=== PATIENT | female | born 1960 | race Caucasian/White ===

== ENCOUNTER → 2017-02-19 | Outpatient (CLI) | payer BC ==
[~2017-02-19] MED LIST: CPR500 PO; PHEN-876 PO
--- NOTE | 2017-02-19 15:07 | MAMMOGRAPHY REPORT ---
BILATERAL DIGITAL SCREENING MAMMOGRAM TOMOSYNTHESIS WITH CAD: 02/19/2017 CLINICAL HISTORY: Routine screening. Patient has no complaints. TECHNIQUE: Breast tomosynthesis in addition to standard 2D mammography was performed. Current study was also evaluated with a Computer Aided Detection (CAD) system. COMPARISON: Comparison is made to exams dated: 01/24/2016 mammogram, 11/27/2013 mammogram, 10/19/2012 m ammogram, 10/06/2011 mammogram - [facility], 11/29/2008, and 11/28/2007. BREAST COMPOSITION: The tissue of both breasts is heterogeneously dense, which may obscure small ma sses. FINDINGS: No suspicious masses, calcifications, or areas of architectural distortion are noted in e ither breast. There has been no significant interval change compared to prior exams. IMPRESSION: ACR BI-RADS CATEGORY 1: NEGATIVE There is no mammographic evidence of malignancy. A 1 year screening mammogram is recommended. The p atient will receive written notification of the results. Approximately 10% of breast cancers are not detected with mammography. A negative mammographic repor t should not delay biopsy if a clinically suggestive mass is present. Kaela Barrientos M.D. ah/:02/19/2017 14:18:38 Shipping Coordinator: Bea CALDERA(Bonnie)(Neha)(BD), [facility] letter sent: Normal 1/2 BI-RADS Code: ACR BI-RADS Category 1: Negative
== END | disposition home or self-care (01) ==
LOC: C.MAMM 13:51
PROVIDERS: ATTEND Obstetrics & Gynecology
DX: Z12.31 Encounter for screening mammogram for malignant neoplasm of breast (principal)

== ENCOUNTER → 2017-04-14 | Outpatient (CLI) | payer BC | END | disposition home or self-care (01) | LOC: C.PAPS 10:20 | PROVIDERS: ATTEND Obstetrics & Gynecology | DX: Z01.419 Encounter for gynecological examination (general) (routine) without abnormal findings (principal) ==

== ENCOUNTER → 2018-02-25 | Outpatient (CLI) | payer OTHER ==
--- NOTE | 2018-02-25 15:14 | MAMMOGRAPHY REPORT ---
BILATERAL DIGITAL SCREENING MAMMOGRAM TOMOSYNTHESIS WITH CAD: 02/25/2018 TECHNIQUE: Breast tomosynthesis in addition to standard 2D mammography was performed. Current study was also evaluated with a Computer Aided Detection (CAD) system. COMPARISON: Comparison is made to exams dated: 02/19/2017 mammogram, 01/24/2016 mammogram, 11/27/2013 m ammogram, 10/19/2012 mammogram, 10/06/2011 mammogram - [facility], and 11/29/2008. BREAST COMPOSITION: The tissue of both breasts is heterogeneously dense, which may obscure small mas ses. FINDINGS: No suspicious masses, calcifications, or areas of architectural distortion are noted in ei ther breast. There has been no significant interval change compared to prior exams. IMPRESSION: ACR BI-RADS CATEGORY 1: NEGATIVE There is no mammographic evidence of malignancy. A 1 year screening mammogram is recommended. The pa tient will receive written notification of the results. Approximately 10% of breast cancers are not detected with mammography. A negative mammographic report should not delay biopsy if a clinically suggestive mass is present. Kaela Barrientos M.D. /:02/25/2018 13:42:29 Gore Cutter: Dayanara FONSECA)(Neha), [facility] letter sent: Normal 1/2 BI-RADS Code: ACR BI-RADS Category 1: Negative
== END | disposition home or self-care (01) ==
LOC: C.MAMM 10:20
PROVIDERS: ATTEND Nurse Practitioner Family
DX: Z12.31 Encounter for screening mammogram for malignant neoplasm of breast (principal)

== ENCOUNTER 2024-02-03 17:08 | Inpatient (IN) ==
--- NOTE | 2024-02-03 17:36 | ED Triage Note ---
Date of Service February 03, 2024 Provider in Triage Author: Johana Nayak History of Present Illness This patient was briefly evaluated while in triage. An abbreviated physical exam was performed. This patient is a 63-year-old Female who presents to the ED for evaluation of right leg pain. No injury or trauma. History of blood clots in the right leg. She was recently taken off her Xarelto for brain surgery for removal of acoustic neuroma. Has been off of the Xarelto since 01/25/24 and was to restarted on 02/08/23. She denies chest pain or SOB. Denies any other symptoms. No pain in the left leg. Physical Exam GENERAL: Non-toxic and in no acute distress. HEENT: Pupils equal. No obvious scleral icterus. HEART: Regular rate and rhythm. LUNGS: Clear to auscultation. No accessory muscle use. NEURO: Alert and oriented. No obvious neurological deficits on quick neuro exam. MUSCULOSKELETAL: Mild edema and tenderness to the superior lateral aspect of the right lower leg. No significant erythema or warmth. No tenderness of the left lower extremity. Initial orders for labs and / or imaging were placed and patient was placed in the waiting area until a bed is available. Please see further documentation for the full ED course. MDM / Impression Impression Impression: DVT (deep venous thrombosis), Leukocytosis Impression: DVT (deep venous thrombosis) Qualifiers: DVT location: lower extremity Affected thrombotic vein of extremity: unspecified vein of extremity Chronicity: acute Laterality: right Qualified Code(s): I82.401 - Acute embolism and thrombosis of unspecified deep veins of right lower extremity Leukocytosis Qualifiers: Leukocytosis type: unspecified Qualified Code(s): D72.829 - Elevated white blood cell count, unspecified
[2024-02-03 18:37] LABS: Basophils # (auto) 0.02 K/uL (0.00-0.20); Basophils % (auto) 0.1 %; Eosinophils # (auto) 0.02 K/uL (0.00-0.50); Eosinophils % (auto) 0.1 %; Hematocrit (blood only) 35.5 % (37.0-47.0); Hemoglobin 12.3 g/dl (12.0-16.0); Immature Granulocytes # (auto) 0.41 K/uL (0.01-0.20); Immature Granulocytes % (auto) 2.5 %; Lymphocytes # (auto) 3.78 K/uL (1.20-3.40); Lymphocytes % (auto) 23.3 %; Mean Corpuscular Hemoglobin 30.7 pg (25.0-34.0); Mean Corpuscular Hgb Conc 34.6 g/dL (32.0-36.0); Mean Corpuscular Volume 88.5 fL (80.0-100.0); Mean Platelet Volume 8.6 fL (9.4-12.4); Monocytes # (auto) 0.96 K/uL (0.11-0.59); Monocytes % (auto) 5.9 %; Neutrophils # (auto) 11.05 K/uL (1.40-6.50); Neutrophils % (auto) 68.1 %; Platelet Count 356 K/uL (130-400); RDW Coefficient of Variation 12.9 % (11.5-14.5); RDW Standard Deviation 42.3 fL (36.4-46.3); Red Blood Count 4.01 M/uL (4.20-5.40); White Blood Count 16.24 K/ul (4.8-10.8)
[2024-02-03 18:54] LABS: Partial Thromboplastin Ratio 0.7; Partial Thromboplastin Time 21 Seconds (21-31); Prothrombin Time 10.8 Seconds (9.0-12.0)
[2024-02-03 19:20] LABS: Albumin Globulin Ratio 1.5 (0.9-2); BUN Creatinine Ratio 44.4 (10-20); Bilirubin,Total 0.4 mg/dl (0.2-1.0); Calcium 8.7 mg/dl (8.6-10.3); Creatinine Clr Calc Pharmacy 90.5 ml/min; Est GFR (Non-African American) 101.8 ml/min; Globulin 2.7 gm/dl (2.5-4.0); Potassium 3.9 mmol/L (3.5-5.1); Total Protein 6.7 gm/dl (6.0-8.3)
--- NOTE | 2024-02-03 21:24 | Ultrasound Report ---
Exam(s): US VENOUS RIGHT LOWER EXTREMITY EXAM: US Duplex Right Lower Extremity Veins CLINICAL HISTORY: Reason for exam: Leg pain, swelling - eval DVT. TECHNIQUE: Real-time duplex ultrasound scan of the right lower extremity veins integrating B-mode two-dimensional vascular structure, Doppler spectral analysis, color flow Doppler imaging and compression. COMPARISON: 06-19-2022. FINDINGS: Patent right common femoral vein. Nonocclusive acute appearing thrombus in the distal superficial femoral vein and occlusive thrombus in the popliteal vein and posterior tibial vein. No evidence for popliteal cyst. IMPRESSION: Acute deep venous thrombosis present. Nonocclusive acute appearing thrombus in the distal superficial femoral vein. Occlusive thrombus in the popliteal vein and posterior tibial vein. Communications: Call Doctor DVT acute, progressing Electronically signed by: Dain Jordan M.D. 02/03/24 21:23 PM
--- NOTE | 2024-02-03 21:59 | Emergency Department Note ---
Impression & Plan DVT (deep venous thrombosis), Leukocytosis ED Provider Note NAME: JOSE ESCALANTE AGE: 63 SEX: F : 1960 ARRIVES VIA: Walk-In INFORMANT: Patient ED PROVIDER(S): Rahul Iglesias DO CHIEF COMPLAINT: right leg pain HPI: Patient is a 63-year-old female who presents to the ER for right lower extremity pain. She has a past medical history of brain surgery performed at [facility] by Dr. Manuel Kramer done last Wednesday per daughter. She is normally on Xarelto but has stopped that for the surgery and is not supposed to restart that till the first of February. She denies any headache or change in vision. No chest pain or shortness of breath. Pain has been constant in the back of her knee and calf and feels in her previous DVT. No dysuria, urgency, or frequency. No other exacerbating or remitting factors. ADDITIONAL HISTORY OBTAINED: Additional history provided by She has a past medical history of brain surgery performed at [facility] by Dr. Manuel Kramer done last Wednesday. Chronic Medical/Social Conditions Affecting Care: Per HPI PAST MEDICAL HISTORY:See Below PAST SURGICAL HISTORY:See Below FAMILY HISTORY:See Below SOCIAL HISTORY:See Below HOME MEDICATIONS:See Below ALLERGIES:See Below VITALS:See Below PHYSICAL EXAMINATION: GENERAL: Sitting up in bed, alert, well appearing, well nourished, no distress, non-toxic HEAD: Incision is clean dry and intact on the left head EYE EXAM: normal conjunctiva. PERRL and EOM's grossly intact. OROPHARYNX: no exudate, no erythema, lips, buccal mucosa, and tongue normal and mucous membranes are moist NECK: supple, no nuchal rigidity, no adenopathy, non-tender LUNGS: Clear to auscultation. Normal chest wall mechanics HEART: no murmurs, S1 normal and S2 normal ABDOMEN: abdomen soft, non-tender, normo-active bowel sounds, no masses, no rebound or guarding. UPPER EXTREMITIES: upper extremities are grossly normal. LOWER EXTREMITIES: Calves are equal bilateral. DP and PT is 2 out of 4. Gross station intact. Flexion-extension bilateral hip knee and ankles intact NEURO EXAM: Normal sensorium, cranial nerves II-XII grossly intact, normal speech, no gross weakness of arms, no gross weakness of legs. MEDICAL DECISION MAKING: Patient is a 63-year-old female postop from last Wednesday brain surgery from [facility] that presents to the ER for pain in the right leg. IV was established blood work was obtained. Labs show leukocytosis of 16,000. No significant anemia. INR unremarkable. BMP with LFTs bilirubin was unremarkable. Troponin was negative. Venous Doppler shows DVT in the right lower extremity. I spoke with the radiologist in regards to this. Following this contacted [facility] neurosurgery Dr. Goff. They recommend heparin drip without bolus starting at a low rate and titrating up to therapeutic levels. Once therapeutic CT of the head should be obtained. As there is no acute findings she can be transitioned. If there is anything abnormal or change in mental status or headache CT needs to be obtained immediately. I discussed this with the hospitalist as well as the patient and . They expressed understanding and patient was admitted to the hospital for further workup. Consults/Care Managements Discussions: Per [facility] Triage Nursing notes reviewed. Limited review of prior medical records performed Vital Signs: reviewed and remarkable for no significant abnormalities Differential diagnosis: DVT, musculoskeletal, infection, joint effusion, trauma, lymphedema, idiopathic, CHF, as well as other pathologies. ER treatment provided: See below Diagnostics interpreted by me include EKG and cardiac monitoring as listed below: -Cardiac Monitoring: An order was placed for continuous cardiac monitoring. The monitor shows a rate of 70 with sinus rhythm. -ECG: Sinus rhythm rate of 67 Normal axis No PVCs QTc 435 -Laboratory studies:Interpreted by me as stated above in MDM and shown below. Imaging studies: Xrays: As interpreted by me:none CTs show: none Procedures:none Critical Care: None Past Med/Surg History Medical History DVT (deep venous thrombosis) Surgical History No pertinent past surgical history Family History Father Myocardial infarction Denies family history of Ovarian cancer Prostate cancer Breast cancer Colorectal cancer Social History Smoking Status: Never smoker Preferred Language: Occitan Feels Safe at Home: Yes Allergies Allergies Allergy/AdvReac Type Severity Reaction Status Date / Time No Known Allergies Allergy Unknown Verified 03/30/23 08:36 Home Meds Home Medications Medication Instructions Recorded Confirmed buspirone 5 mg tablet 5 mg PO BID 01/23/24 01/23/24 hydroxyzine pamoate 25 mg capsule 25 mg PO QID PRN Anxiety 01/23/24 01/23/24 rivaroxaban 10 mg tablet (Xarelto) 10 mg PO DAILY 01/23/24 01/23/24 simvastatin 20 mg tablet 20 mg PO HS 01/23/24 01/23/24 Results & Data (ED) Vital Signs Vital Signs - 24 hr 02/03/24 17:33 02/03/24 21:27 Temperature 36.8 C Temperature Source Temporal Artery Scan Pulse Rate 95 H 67 Respiratory Rate 18 Respiratory Effort / Characteristics Non-Labored Spontaneous Respiratory Depth Normal Respiratory Pattern Regular Blood Pressure 126/88 Blood Pressure Mean 100 Blood Pressure Position Sitting Pulse Oximetry 97 Oxygen Delivery Method Room Air Sepsis Recent Fever Within 48 Hours No Sepsis New/Unexplained Change in Mental Status N/A Sepsis Action Taken by Nursing No Action Required Laboratory Data 02/03/24 18:20 02/03/24 18:20 Lab Results 02/03/24 Range/Units 18:20 WBC 16.24 H (4.8-10.8) K/ul RBC 4.01 L (4.20-5.40) M/uL Hgb 12.3 (12.0-16.0) g/dl Hct 35.5 L (37.0-47.0) % MCV 88.5 (80.0-100.0) fL MCH 30.7 (25.0-34.0) pg MCHC 34.6 (32.0-36.0) g/dL RDW Std Deviation 42.3 (36.4-46.3) fL RDW Coeff of Zia 12.9 (11.5-14.5) % Plt Count 356 (130-400) K/uL MPV 8.6 L (9.4-12.4) fL Immature Gran % (Auto) 2.5 % Neut % (Auto) 68.1 % Lymph % (Auto) 23.3 % Mineral % (Auto) 5.9 % Eos % (Auto) 0.1 % Baso % (Auto) 0.1 % Neut # (Auto) 11.05 H (1.40-6.50) K/uL Lymph # (Auto) 3.78 H (1.20-3.40) K/uL Mineral # (Auto) 0.96 H (0.11-0.59) K/uL Eos # (Auto) 0.02 (0.00-0.50) K/uL Baso # (Auto) 0.02 (0.00-0.20) K/uL Immature Gran # (Auto) 0.41 H (0.01-0.20) K/uL PT 10.8 (9.0-12.0) Seconds INR 1.0 (0.9-1.1) APTT 21 (21-31) Seconds PTT Ratio 0.7 Sodium 135 L (136-145) mmol/L Potassium 3.9 (3.5-5.1) mmol/L Chloride 102 (98-107) mmol/L Carbon Dioxide 25 (21-32) mmol/L Anion Gap 8 (3-11) BUN 24 H (6-23) mg/dl Creatinine 0.54 L (0.6-1.2) mg/dl Est Cr Clr Drug Dosing 90.5 ml/min Est GFR ( Amer) 118.0 ml/min Est GFR (Non-Af Amer) 101.8 ml/min BUN/Creatinine Ratio 44.4 H (10-20) Glucose 135 H (70-99(Fasting)) mg/dl Calcium 8.7 (8.6-10.3) mg/dl Total Bilirubin 0.4 (0.2-1.0) mg/dl AST 14 (13-39) U/L ALT 18 (7-52) U/L Alkaline Phosphatase 57 (34-104) U/L Troponin I High Sens 3.0 (0-14) pg/ml Total Protein 6.7 (6.0-8.3) gm/dl Albumin 4.0 (3.4-5.0) gm/dl Globulin 2.7 (2.5-4.0) gm/dl Albumin/Globulin Ratio 1.5 (0.9-2) Administered Medications Cephalexin HCl (Cephalexin 500 Mg Cap) 500 mg PO Q8 [facility]; Protocol Stop: 02/05/24 23:59 Last Admin: 02/04/24 01:15 Dose: 500 mg Documented By: AAW Dexamethasone (Dexamethasone 1 Mg Tab) 2 mg PO BID [facility] Stop: 03/05/24 00:15 Last Admin: 02/04/24 01:14 Dose: 2 mg Documented By: MEY Heparin Sodium/Dextrose (Heparin Sodium/Dextrose) 25,000 units in 500 mls @ 13 mls/hr IV .Q24H [facility]; Protocol Stop: 03/04/24 23:14 Last Admin: 02/03/24 23:36 Dose: 650 units/hr, 13 mls/hr Documented By: PAULY Co-signed By: Sennosides (Senna 8.6 Mg Tab) 8.6 mg PO BID [facility] Stop: 03/05/24 00:15 Last Admin: 02/04/24 01:15 Dose: 8.6 mg Documented By: MEY Imaging Data Radiologist's Impression: Venous Doppler Study 02/03/24 17:36 CR Exam(s): US VENOUS RIGHT LOWER EXTREMITY EXAM: US Duplex Right Lower Extremity Veins CLINICAL HISTORY: Reason for exam: Leg pain, swelling - eval DVT. TECHNIQUE: Real-time duplex ultrasound scan of the right lower extremity veins integrating B-mode two-dimensional vascular structure, Doppler spectral analysis, color flow Doppler imaging and compression. COMPARISON: 06-19-2022. FINDINGS: Patent right common femoral vein. Nonocclusive acute appearing thrombus in the distal superficial femoral vein and occlusive thrombus in the popliteal vein and posterior tibial vein. No evidence for popliteal cyst. IMPRESSION: Acute deep venous thrombosis present. Nonocclusive acute appearing thrombus in the distal superficial femoral vein. Occlusive thrombus in the popliteal vein and posterior tibial vein. Communications: Call Doctor DVT acute, progressing Electronically signed by: Dain Jordan M.D. 02/03/24 21:23 PM Discharge Plan Visit Data Chief Complaint: Leg Injury/Pain Stated Complaint: TAKEN OFF BLOOD THINNERS FOR SURGERY ED Provider: Rahul Iglesias Discharge Problem: DVT (deep venous thrombosis), Leukocytosis Discharge Instructions Interventions: ED Discharge Assessment Last Done: 02/04/24 00:16 Discharge Problem: DVT (deep venous thrombosis) Qualifiers: DVT location: lower extremity Affected thrombotic vein of extremity: u nspecified vein of extremity Chronicity: acute Laterality: right Qualified Code(s): I82.401 - Acute embolism and thrombosis of unspecified deep veins of right lower extremity Leukocytosis Qualifiers: Leukocytosis type: unspecified Qualified Code(s): D72.829 - Elevated white blood cell count, unspecified
[2024-02-03] MEDS: HEPARIN SODIUM/DEXTROSE 25,000 UNITS/500 ML BAG IV SCH (23:36)
[2024-02-04] MEDS: dexAMETHasone 1 MG TAB PO SCH (01:14)
[2024-02-04] MEDS: SENNA 8.6 MG TAB PO SCH (01:15)
[2024-02-04] MEDS: cephALEXin 500 MG CAP PO SCH ×2 (01:15→10:19)
--- NOTE | 2024-02-04 04:41 | History & Physical Report ---
Date of Service February 03, 2024 Assessment & Plan (1) DVT (deep venous thrombosis): Plan: - recurrent DVT noted on imaging - ED discussed case with [facility] Neurology; plan for Heparin gtt- repeat Head CT once heparin is at therapeutic level plan for repeat head CT; if no acute changes can transition back to DOAC - q4 neurochecks, low threshold for Head CT if any anything abnormal or changes in mental status (2) Leukocytosis: Plan: - leukocytosis to 16; on dexamethasone taper post-op - no signs of infection (3) History of acoustic neuroma: Plan: - s/p removal 01/25 - on Keflex post-op- instructed to take 5 days post d/c (01/31); so last day would be 02/04 - continue Decadron taper- 02/01-02/09= 2mg BID; 02/10-02/11= 2mg daily (4) HLD (hyperlipidemia): Plan: - continue statin History of Present Illness Primary Care Provider: KANCHAN Taylor 63 year old female presenting with concern for acute onset of right lower extremity pain. She has a history of DVT x 2. She is on Xarelto indefinitely. Had surgery to remove an acoustic neuroma on 01/25. Has been recovering well from surgery, no complications. Has been off Xarelto since 01/24. Surgery was completed at [facility]. Denies redness/swelling in legs but states that it feels the same as when she had her prior DVTs. Denies chest pain/dyspnea. ED Course Significant for: US LE with Nonocclusive acute appearing thrombus in the distal superficial femoral vein. Occlusive thrombus in the popliteal vein and posterior tibial vein, ED physician spoke with [facility] Neurology and plan per them was to start Heparin gtt, which was initiated in the ED. Allergies Allergy/AdvReac Type Severity Reaction Status Date / Time No Known Allergies Allergy Unknown Verified 03/30/23 08:36 Home Medications Medication Instructions Recorded Confirmed Type buspirone 5 mg tablet 5 mg PO BID 01/23/24 01/23/24 History hydroxyzine pamoate 25 mg capsule 25 mg PO QID PRN Anxiety 01/23/24 01/23/24 History rivaroxaban 10 mg tablet (Xarelto) 10 mg PO DAILY 01/23/24 01/23/24 History simvastatin 20 mg tablet 20 mg PO HS 01/23/24 01/23/24 History Past Med/Surg History Medical History (Updated 02/04/24 @ 11:09 by Gloria Hearn DO) HLD (hyperlipidemia) History of acoustic neuroma s/p surgical excision at [facility] DVT (deep venous thrombosis) Surgical History (Updated 02/04/24 @ 11:09 by Gloria Hearn DO) History of brain surgery removal of acoustic neuroma - 01/2024 at [facility] Family History Father Myocardial infarction Denies family history of Ovarian cancer Prostate cancer Breast cancer Colorectal cancer Social History Smoking Status: Never smoker Hx Alcohol Use: No Hx Substance Use: No Preferred Language: Wallisian Communication Ability: Effective Lifter/Driver Required: No Beliefs That Will Affect Care: None Current Living Situation: Spouse Other Information That Helps Us Care for You: No Feels Safe at Home: Yes Safety Concerns: Feels Safe At This Time Assistive Devices: Glasses Assistive Devices Comment: reading glasses Review of Systems Review of Systems: As per above Physical Exam Physical Exam: Constitutional: well-appearing, no acute distress HEENT: NCAT, no conjunctival injection CV: regular rhythm, no murmur appreciated, extremities well-perfused, no LE edema Resp: CTABL, no wheezes/rales/rhonchi appreciated, no increased work of breathing MSK: no gross deformities appreciated, tenderness, mild edema right calf, no erythema Skin: warm, dry, no rash appreciated Neuro: alert, oriented, no focal neurologic deficit appreciated Results & Data Results & Data Vital Signs (Past 12 Hours) Vital Signs Temp Pulse Resp BP Pulse Ox O2 Del Method 02/03/24 21:27 67 02/03/24 17:33 36.8 C 95 H 18 126/88 97 Room Air Laboratory Results Laboratory Results WBC 16.33 K/ul (4.8-10.8) H 02/04/24 05:28 RBC 3.62 M/uL (4.20-5.40) L 02/04/24 05:28 Hgb 11.1 g/dl (12.0-16.0) L 02/04/24 05:28 Hct 32.7 % (37.0-47.0) L 02/04/24 05:28 MCV 90.3 fL (80.0-100.0) 02/04/24 05:28 MCH 30.7 pg (25.0-34.0) 02/04/24 05: MCHC 33.9 g/dL (32.0-36.0) 02/04/24 05: RDW Std Deviation 42.8 fL (36.4-46.3) 02/04/24 05: RDW Coeff of Zia 13.0 % (11.5-14.5) 02/04/24 05: Plt Count 300 K/uL (130-400) 02/04/24 05: MPV 8.6 fL (9.4-12.4) L 02/04/24 05: Immature Gran % (Auto) 2.5 % 02/03/24 18:20 Neut % (Auto) 68.1 % 02/03/24 18:20 Lymph % (Auto) 23.3 % 02/03/24 18:20 [place] % (Auto) 5.9 % 02/03/24 18:20 Eos % (Auto) 0.1 % 02/03/24 18:20 Baso % (Auto) 0.1 % 02/03/24 18:20 Neut # (Auto) 11.05 K/uL (1.40-6.50) H 02/03/24 18:20 Lymph # (Auto) 3.78 K/uL (1.20-3.40) H 02/03/24 18:20 [place] # (Auto) 0.96 K/uL (0.11-0.59) H 02/03/24 18:20 Eos # (Auto) 0.02 K/uL (0.00-0.50) 02/03/24 18:20 Baso # (Auto) 0.02 K/uL (0.00-0.20) 02/03/24 18:20 Immature Gran # (Auto) 0.41 K/uL (0.01-0.20) H 02/03/24 18:20 PT 10.8 Seconds (9.0-12.0) 02/03/24 18:20 INR 1.0 (0.9-1.1) 02/03/24 18:20 APTT 21 Seconds (21-31) 02/03/24 18:20 PTT Ratio 0.7 02/03/24 18:20 Heparin Anti-Xa, Unfract 0.24 IU/ml (0.3-0.7) L 02/04/24 05:28 Sodium 136 mmol/L (136-145) 02/04/24 05:28 Potassium 3.7 mmol/L (3.5-5.1) 02/04/24 05:28 Chloride 104 mmol/L (98-107) 02/04/24 05:28 Carbon Dioxide 25 mmol/L (21-32) 02/04/24 05:28 Anion Gap 7 (3-11) 02/04/24 05:28 BUN 20 mg/dl (6-23) 02/04/24 05:28 Creatinine 0.51 mg/dl (0.6-1.2) L 02/04/24 05:28 Est Cr Clr Drug Dosing 95.8 ml/min 02/04/24 05:28 Est GFR ( Amer) 120.3 ml/min 02/04/24 05:28 Est GFR (Non-Af Amer) 103.8 ml/min 02/04/24 05:28 BUN/Creatinine Ratio 39.2 (10-20) H 02/04/24 05:28 Glucose 98 mg/dl (70-99(Fasting)) 02/04/24 05:28 Calcium 8.1 mg/dl (8.6-10.3) L 02/04/24 05:28 Magnesium 1.9 mg/dl (1.7-2.4) 02/04/24 05:28 Total Bilirubin 0.6 mg/dl (0.2-1.0) 02/04/24 05:28 AST 13 U/L (13-39) 02/04/24 05:28 ALT 15 U/L (7-52) 02/04/24 05:28 Alkaline Phosphatase 51 U/L (34-104) 02/04/24 05:28 Troponin I High Sens 3.0 pg/ml (0-14) 02/03/24 18:20 Total Protein 5.8 gm/dl (6.0-8.3) L 02/04/24 05:28 Albumin 3.5 gm/dl (3.4-5.0) 02/04/24 05:28 Globulin 2.3 gm/dl (2.5-4.0) L 02/04/24 05:28 Albumin/Globulin Ratio 1.5 (0.9-2) 02/04/24 05:28 Impressions Venous Doppler Study 02/03/24 17:36 CR Exam(s): US VENOUS RIGHT LOWER EXTREMITY EXAM: US Duplex Right Lower Extremity Veins CLINICAL HISTORY: Reason for exam: Leg pain, swelling - eval DVT. TECHNIQUE: Real-time duplex ultrasound scan of the right lower extremity veins integrating B-mode two-dimensional vascular structure, Doppler spectral analysis, color flow Doppler imaging and compression. COMPARISON: 06-19-2022. FINDINGS: Patent right common femoral vein. Nonocclusive acute appearing thrombus in the distal superficial femoral vein and occlusive thrombus in the popliteal vein and posterior tibial vein. No evidence for popliteal cyst. IMPRESSION: Acute deep venous thrombosis present. Nonocclusive acute appearing thrombus in the distal superficial femoral vein. Occlusive thrombus in the popliteal vein and posterior tibial vein. Communications: Call Doctor DVT acute, progressing Electronically signed by: Dain Jordan M.D. 02/03/24 21:23 PM Supervising Physician Co-Signing Physician Notes Patient seen and examined, chart reviewed, case discussed with Dr. Gutierrez and I agree with the assessment and plan as above Patient with recent surgical excision of acoustic neuroma performed at [facility] pn 01/26/24. Patient is on Keflex and Decadron post- operatively. History of DVT on Eliquis anticoagulation which was held for the surgery. Patient presenting with acute RLE DVT. Patient has had a mildly productive cough since the surgery otherwise denies chest pain, pleuritic pain, hemoptysis On exam she is resting comfortably, NAD Skin without rash HEENT - MMM, Neck supple, surgical sites with no evidence of infection Heart - +S1/S2, regular, no m/r/g Lungs - CTA, no rales/rhonchi or wheezes Abd - Soft, NT/ND Ext - warm, well perfused Labs and images reviewed Assessment/Plan Case discussed between ER team and Neurosurgical team at [facility]. -Will start heparin gtt low dose without bolus -When therapeutic on heparin gtt should obtain non-contrast CT of the head to assess for any bleeding -If stable, may resume home NOAC -Neuro checks, low threshold for repeat CT -Cough - patient on Keflex, leukocytosis most likely due to her Decadron as well. Monitor for development of pneumonia -Remainder as above Resident Activity Tracking Resident Involvement: Resident Care Provided Care Provided: Adult Hospital Medicine (1) DVT (deep venous thrombosis) Affected thrombotic vein of extremity: unspecified vein of extremity Chronicity: acute DVT location: lower extremity Laterality: right Qualified Code(s): I82.401 - Acute embolism and thrombosis of unspecified deep veins of right lower extremity (2) Leukocytosis Leukocytosis type: unspecified Qualified Code(s): D72.829 - Elevated white blood cell count, unspecified
[2024-02-04 06:24] LABS: Hematocrit (blood only) 32.7 % (37.0-47.0); Hemoglobin 11.1 g/dl (12.0-16.0); Mean Corpuscular Hemoglobin 30.7 pg (25.0-34.0); Mean Corpuscular Hgb Conc 33.9 g/dL (32.0-36.0); Mean Corpuscular Volume 90.3 fL (80.0-100.0); Mean Platelet Volume 8.6 fL (9.4-12.4); Platelet Count 300 K/uL (130-400); RDW Standard Deviation 42.8 fL (36.4-46.3); Red Blood Count 3.62 M/uL (4.20-5.40); White Blood Count 16.33 K/ul (4.8-10.8)
[2024-02-04 06:46] LABS: ANTI-Xa, UFH(UnfractionatedHep 0.24 IU/ml (0.3-0.7)
[2024-02-04 06:48] LABS: Albumin Globulin Ratio 1.5 (0.9-2); Albumin Level 3.5 gm/dl (3.4-5.0); BUN Creatinine Ratio 39.2 (10-20); Bilirubin,Total 0.6 mg/dl (0.2-1.0); Calcium 8.1 mg/dl (8.6-10.3); Creatinine Clr Calc Pharmacy 95.8 ml/min; Est GFR (African American) 120.3 ml/min; Est GFR (Non-African American) 103.8 ml/min; Globulin 2.3 gm/dl (2.5-4.0); Magnesium 1.9 mg/dl (1.7-2.4); Potassium 3.7 mmol/L (3.5-5.1); Total Protein 5.8 gm/dl (6.0-8.3)
[2024-02-04] MEDS: FAMOTIDINE 20 MG TAB PO SCH (10:19)
[2024-02-04] MEDS: Heparin IV Adult Wt-Based Low-Dose *NO* INITIAL Bolus Protocol IV STA (11:08)
--- NOTE | 2024-02-04 11:16 | Billing Data ---
Date of Service February 03, 2024 Coding Level of Care Code 42150 INT INP/OBS CARE
--- NOTE | 2024-02-04 12:44 | Electrocardiogram Report ---
Test Reason : Blood Pressure : / mmHG Vent. Rate : 067 BPM Atrial Rate : 067 BPM P-R Int : 156 ms QRS Dur : 086 ms QT Int : 412 ms P-R-T Axes : 074 018 053 degrees QTc Int : 435 ms Normal sinus rhythm Normal ECG When compared with ECG of 23-JAN-2024 18:40, No significant change was found Confirmed by Mata Marcial ([id number]) on 02/04/2024 12:44:36 PM Referred By: REFERRED SELF Confirmed By:Mata Marcial
[2024-02-04 13:36] LABS: ANTI-Xa, UFH(UnfractionatedHep 0.39 IU/ml (0.3-0.7)
--- NOTE | 2024-02-04 15:08 | CT Scan Report ---
CT head/brain wo con CLINICAL HISTORY: 63 years-old Female with Recent brain surgery, now on heparin drip. Acute headache TECHNIQUE: Multiple axial CT images of the head were obtained without contrast. A dose lowering tech nique was utilized adhering to the principles of ALARA. CT DOSE: 625.8 mGy.cm COMPARISON: None. FINDINGS: Transverse dimension of the lateral ventricles measures 3.5 cm, previously 3.9 cm. Involutional dover es with chronic microvascular ischemic disease. Right frontal calvaria are whole is new from prior. A dditionally, there are left temporal occipital craniotomy changes which are also new. Small amount of pneumocephalus is noted along the right frontal lobe surgical tract adjacent to a 5 mm metallic dens ity right frontal lobe structure on image 22 series 2. Small amount of air within the right frontal h orn with additional pneumocephalus within the left posterior fossa tracking along the cerebellar tent orium. Evaluation for residual left posterior fossa mass is limited without the use of IV contrast. There is however an acute extra-axial hemorrhagic focus within the left cerebellar pontine angle operative be d on image 9 series 2 measuring 2.8 x 1.3 cm with adjacent pneumocephalus. Mild surrounding edema wit hin the left brachium pontis and left cerebellar hemisphere. Trace acute subdural hemorrhage is also noted layering along the anterior aspect of the falx cerebri on image 16 series 2 measuring 3 mm yanez sversely. There is no midline shift or acute territorial infarct. Small left mastoid effusion. Unremarkable soft tissues. IMPRESSION: 1. Interval postoperative changes with right frontal calvarial marivel hole and left temporal occipital craniotomy. There has been apparent resection of the previously described left cerebellar pontine mas s, however evaluation is limited without the use of IV contrast. 2. There is an acute 2.8 cm extra-axial hemorrhagic focus within the left cerebellar pontine angle hutton rgical bed with additional small amount of acute subdural hemorrhage layering along the anterior falx cerebri. No midline shift. 3. Trace amount of likely expected postoperative pneumocephalus. 4. Additional findings as above. ACT 112: Negative or not required by law. The above report was generated using voice recognition software. It may contain grammatical, syntax o r spelling errors. Electronically signed by: Shilo Godoy M.D. 02/04/2024 3:06 PM
--- NOTE | 2024-02-04 15:48 | Communication Note ---
Date of Service: February 04, 2024 I was informed by the nurse, Erin Martinez about urgent CT results. I reviewed the head CT results. Concern for new bleed while on heparin drip. I have p laced an order to hold the heparin drip and also communicated with the nurse. I am trying to get in touch with [facility] neurosurgery. Have left messages with the transfer center, awaiting callback. I have also called the and informed him of the CT findings. I asked him for a contact number for neurosurgery which he does not have.
--- NOTE | 2024-02-04 16:22 | Communication Note ---
Date of Service: February 04, 2024 I was able to connect with the transfer center. Transfer is being initiated. In the meantime, I spoke to the to update him. He was able to provide me with a phone number of the neurosurgery office at [facility]. I was able to speak to Jaime, nurse practitioner at the outpatient office who stated that a head CT was done on 01/30 which did not report any cerebellar pontine angle hemorrhagic focus or subdural hematoma. Thus these are all new changes after the heparin drip was initiated. She agrees with the transfer. Of note, transfer has already been initiated through our transfer center.
--- NOTE | 2024-02-04 17:35 | Discharge Summary ---
Date of Service February 04, 2024 Admission HPI Per Admitting Provider 63 year old female presenting with concern for acute onset of right lower extremity pain. She has a history of DVT x 2. She is on Xarelto indefinitely. Had surgery to remove an acoustic neuroma on 01/25. Has been recovering well from surgery, no complications. Has been off Xarelto since 01/24. Surgery was completed at [facility]. Denies redness/swelling in legs but states that it feels the same as when she had her prior DVTs. Denies chest pain/dyspnea. ED Course Significant for: US LE with Nonocclusive acute appearing thrombus in the distal superficial femoral vein. Occlusive thrombus in the popliteal vein and posterior tibial vein, ED physician spoke with [facility] Neurology and plan per them was to start Heparin gtt, which was initiated in the ED. Admission Exam Per Admitting Provider Constitutional: well-appearing, no acute distress HEENT: NCAT, no conjunctival injection CV: regular rhythm, no murmur appreciated, extremities well-perfused, no LE edema Resp: CTABL, no wheezes/rales/rhonchi appreciated, no increased work of breathing MSK: no gross deformities appreciated, tenderness, mild edema right calf, no erythema Skin: warm, dry, no rash appreciated Neuro: alert, oriented, no focal neurologic deficit appreciated Principal Diagnosis Left cerebellar pontine angle hemorrhage Acute subdural hemorrhage Acute right lower extremity DVT Recent resection of acoustic neuroma Discharge Exam General: Awake, conversant, smiling Heart: S1, S2/regular rate and rhythm, no murmur rubs or gallops Lungs: Clear to auscultation bilaterally. Normal effort Abdomen: Soft/nontender/nondistended. No hepatosplenomegaly Extremities: No clubbing/cyanosis. No edema Neurological exam: Heel greene test negative, and finger-nose test negative, strength equal 5/5 in all 4 extremities Behavior: Appropriate, cooperative Discharge Data Allergies Allergy/AdvReac Type Severity Reaction Status Date / Time No Known Allergies Allergy Unknown Verified 03/30/23 08:36 Consultations 02/04/24 16:49 Burn CD for patient Stat Ordered Studies 02/03/24 17:36 US venous doppler LE RT Stat 02/04/24 13:47 CT head/brain wo con Routine Hospital Course (1) Left-sided nontraumatic intracerebral hemorrhage of cerebellum: In the setting of anticoagulation with heparin drip, recent neurosurgery Head CT was done when she was therapeutic with heparin drip Head CT showed new bleed. Confirmed with nurse practitioner at [facility] that this bleed was not present on last head CT 01/30 Heparin drip discontinued immediately Spoke to Dr. Manuel Kramer, neurosurgeon who did the resection of acoustic neuroma on 01/25. He did not recommend protamine. He is the accepting physician but the attending physician will be Dr. Shahid Corado. Spoke to Dr. Corado as well Patient and family have been updated. Fortunately, patient is neurologically intact with no neurologic deficits. She is smiling, conversant with good strength bilaterally. No dysmetria (2) Acute subdural hematoma: Please see problem #1 (3) DVT (deep venous thrombosis): - recurrent DVT noted on imaging -Anticoagulation with heparin drip led to a new head bleed Heparin drip discontinued Patient may need an IVC filter placed. This will be addressed at [facility] (4) Leukocytosis: - leukocytosis to 16; on dexamethasone taper post-op - no signs of infection (5) History of acoustic neuroma: - s/p removal 01/25 - on Keflex post-op- instructed to take 5 days post d/c (01/31); so last day would be 02/04 - continue Decadron taper- 02/01-02/09= 2mg BID; 02/10-02/11= 2mg daily (6) HLD (hyperlipidemia): - Discontinue statin Plan Emergency transfer arranged via [facility] to [facility]. Accepting physician Dr. Manuel Kramer. Attending physician Dr. Corado. Patient and family updated Total Time Total Time Spent Total Time Spent (In Minutes): 35 Discharge Plan Discharge Items Patient Disposition: Transfer Acute Care Hospital Reason For Visit: DVT Discharge Diagnosis: Left cerebellar pontine angle hemorrhage Acute subdural hemorrhage Acute right lower extremity DVT Recent resection of acoustic neuroma Activity: As commented below Activity Comment: Bedrest Non-emergency contact: Primary Care Provider Call non-emergency contact if: you have any medication questions and your symptoms worsen Follow-up/Referrals: Dara Castillo CRNP [Primary Care Provider] - Diet: Nothing by Mouth Addtl Attending Provider Instructions: Advised to note that you are being transferred to [facility] because of a head bleed Pending Studies at Discharge: No Stand-Alone Forms: My [facility] Skilled Items Patient informed of condition?: Yes DNR: No Discharge Level of Care: Other Communicable Disease: No Discharge Prognosis: Stable Lines: None Urinary Catheter: No Medications and DC Order Prescriptions: Discontinued buspirone 5 mg tablet 5 mg PO BID simvastatin 20 mg tablet 20 mg PO HS hydroxyzine pamoate 25 mg capsule 25 mg PO QID PRN (Reason: Anxiety) Xarelto 10 mg tablet 10 mg PO DAILY Discharge Orders: Discharge Order (Routine); Ordered 02/04/24 Ordered By: Adriana Solano Admission Data Admit Date/Time: 02/03/24 23:43 Attending Provider: Adriana Solano Admit Provider: Ave Gutierrez Primary Care Provider: Dara Castillo Coding Level of Care Code 31853 INP/OBS DISCH >30 MIN Diagnoses 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
[2024-02-04] MEDS: SIMVASTATIN 20 MG TAB PO SCH (19:21)
[2024-02-04] MEDS: ACETAMINOPHEN 325 MG TAB PO STA (20:28)
[2024-02-11] MEDS ORDERED: dexAMETHasone 1 MG TAB PO SCH (09:00)
== END 2024-02-04 21:30 | disposition short-term general hospital (02) | DRG 299 ==
LOC: ED 17:08 → EDINP 23:43 → SUATTDRO 23:43 → EDINP 02-04 04:44 → 2N 02-04 05:22